=== PATIENT | male | born 1975 | race African-American/Black ===

== ENCOUNTER 2017-04-13 15:25 | Emergency (ER) | payer OTHER | END 2017-04-13 18:26 | disposition home or self-care (01) | LOC: D.ER 15:25 | DX: S93.401A Sprain of unspecified ligament of right ankle, initial encounter (principal); W11.XXXA Fall on and from ladder, initial encounter; Y93.89 Activity, other specified; Y92.019 Unspecified place in single-family (private) house as the place of occurrence of the external cause; I10 Essential (primary) hypertension ==

== ENCOUNTER 2018-11-07 16:51 | Emergency (ER) | payer MEDICAID ==
[~2018-11-07] VITALS: Ht 177.8 cm; Wt 95.5 kg
[2018-11-07 17:08] VITALS: Ht 177.8 cm; Wt 95.5 kg
[2018-11-07] MEDS ORDERED: PRINIVIL10 MG PO (19:40)
[2018-11-07 20:07] VITALS: BP 147/103
== END 2018-11-07 20:08 | disposition home or self-care (01) ==
LOC: D.ER 16:51
DX: I10 Essential (primary) hypertension (principal); F17.200 Nicotine dependence, unspecified, uncomplicated